=== PATIENT | male | born 1985 | race Caucasian/White ===

== ENCOUNTER 2016-09-15 15:50 | Inpatient (IN) | payer BC, OTHER ==
[~2016-09-15] VITALS: Ht 180.3 cm; Wt 70.3 kg
[2016-09-15] MEDS ORDERED: ONDANSETRON ODT 4 MG TAB.RAPDIS SL PRN (19:15)
[2016-09-15] MEDS ORDERED: HYDROXYZINE PAMOATE 25 MG CAPSULE PO PRN (19:15)
[2016-09-15] MEDS ORDERED: diphenhydrAMINE 50 MG CAPSULE PO PRN (19:15)
[2016-09-15] MEDS ORDERED: DICYCLOMINE HCL 20 MG TABLET PO PRN (19:15)
[2016-09-15] MEDS ORDERED: MIRALAX 17 GM POWD.PACK PO PRN (19:15)
[2016-09-15] MEDS ORDERED: METHOCARBAMOL 750 MG TABLET PO PRN (19:15)
[2016-09-15] MEDS ORDERED: MAG HYDROX/AL HYDROX/SIMETH 30 ML LIQUID UDC PO PRN (19:15)
[2016-09-15] MEDS ORDERED: ONDANSETRON 4 MG/2 ML VIAL IM PRN (19:15)
[2016-09-15] MEDS ORDERED: LORAZEPAM 1 MG TABLET PO PRN (19:15)
[2016-09-15] MEDS ORDERED: MAGNESIUM HYDROXIDE 30 ML LIQUID UDC PO PRN (19:15)
[2016-09-15] MEDS ORDERED: BUPRENORPHINE HCL 2 MG TAB.SUBL SL PRN (19:15)
[2016-09-15] MEDS ORDERED: IBUPROFEN 600 MG TABLET PO PRN (19:15)
[2016-09-15] MEDS ORDERED: LOPERAMIDE HCL 2 MG CAPSULE PO PRN ×2 (19:15)
[2016-09-15] MEDS ORDERED: CLONIDINE HCL 0.1 MG TABLET PO PRN (19:15)
[2016-09-15] MEDS ORDERED: ACETAMINOPHEN 325 MG TABLET PO PRN (19:15)
--- NOTE | 2016-09-15 19:20 | NUR ---
PRE-ADMISSION NOTE PATIENT SEEN IN INTAKE. ALERT AND ORIENTED X 4. PATIENT ABLE TO ANSWER QUESTIONS APPROPRIATELY. VS BP-144/79 P-104 T-96.9 R-18 PA-0/10. SpO2 AT 96% IN RA. PATIENT APPEARS TO BE ANXIOUS. PATIENT AMBULATORY AND HAS STEADY GAIT. DENIES ANY PAIN. PATIENT STATES HES ALLERGIC TO REMERON. NO SEIZURE HISTORY. DISCUSSED TO PATIENT UNIT POLICIES , Q4HRS VS AND SMOKING POLICIES. WILL CONTINUE ADMISSION ON 3RD FLOOR.
[2016-09-15 19:30] VITALS: BP 144/79
--- NOTE | 2016-09-15 19:30 | NUR ---
ADMISSION NOTE RECEIVED PATIENT IN THE UNIT AT THIS TIME. 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 HEIGHT IS 5'11 AND WEIGHT IS 155 LBS. LUNGS CLEAR AND ABDOMEN SOFT AND NON-DISTENDED. BOWEL SOUNDS ACTIVE ON ALL 4 QUADRANT. PER PATIENT HIS LAST BOWEL MOVEMENT WAS LAST WEDNESDAY. HE HAS REGULAR BOWEL MOVEMENT WHEN HE DOESN'T USE. NO ABDOMINAL PAIN AND DENIES CONSTIPATION. DENIES DIFFICULTY URINATING. UNABLE TO PROVIDED URINE AT THIS TIME. BODY CHECK DONE. SKIN INTACT. NO SKIN BREAKDOWN. PATIENT IS CURRENTLY UNEMPLOYED AND HAS BEEN LIVING IN [facility]. PATIENT DENIES ANY PAST MEDICAL HISTORY. PATIENT REQUESTED TO BE FULL CODE AND ON REGULAR DIET. HIS LONGEST PERIOD OF SOBRIETY WAS 6 MONTHS ON 2013. PATIENT STATES HE WAS IN ABLE TO CHANGE RECOVERY ON AUGUST 17 TO AUGUST 14. HE RELAPSED 3 DAYS AGO. SUBSTANCE HISTORY 1.HEROIN (SMOKE)- STARTED USING AT AGE 27. HE SMOKES GRAM DAILY FOR 3 DAYS. LAST USE WAS GRAM ON 09/15/16 AT 7 AM. 2.METHAMPHETAMINE (SMOKE)- STARTED USING AT AGE 29. HE SMOKES $20 WORTH FOR 3 DAYS. LAST USE WAS $5 WORTH. PATIENT APPEARS TO BE ANXIOUS, RESTLESS, FIDGETY, NOTED WITH FINE TREMORS. COWS 6. PATIENT STATES HES TIRED , HE STATES HE DID NOT SLEEP FOR 4 DAYS BUT HAD 1 HOUR SLEEP BEFORE COMING HERE. DENIES SI/HI. PATIENT STATES HIS W/D SYMPTOMS ARE BACK ACHE, ANXIETY AND LETHARGY. PATIENT STATES HE DOES NOT HAVE PCP. PATIENT SMOKES PACK DAILY. PATIENT BROUGHT HOME MEDS RECONCILED. PATIENT BROUGHT CLONIDINE AND SEROQUEL. PATIENT ORIENTED TO SURROUNDINGS AND HOW TO USE CALL LIGHT. WILL CALL MD AND WILL GIVEN DETAIL REPORT. PATIENT WAS PLACED ON FALL PRECAUTION. SAFETY MEASURES IN PLACE. CALL LIGHT IN REACH. WILL CONTINUE TO MONITOR.
[2016-09-15] MEDS ORDERED: CLON0.1T PO (20:21)
[2016-09-15] MEDS ORDERED: QUET200T PO (20:24)
[2016-09-15 20:25] LABS: BASOPHILS % (AUTO) 0.4 % (0.0-2.0); EOSINOPHILS # (AUTO) 0.2 K/uL (0.0-0.7); EOSINOPHILS % (AUTO) 2.5 % (0.0-7.0); HEMATOCRIT 38.2 % (40-50); HEMOGLOBIN 12.6 G/DL (14.0-18.0); LYMPHOCYTES # (AUTO) 1.4 K/UL (0.8-4.8); LYMPHOCYTES % (AUTO) 17.6 % (20.5-51.5); MEAN CORPUSCULAR HEMOGLOBIN 29.4 UUG (27.0-31.0); MEAN CORPUSCULAR HGB CONC 33 g/dL (32.0-37.0); MEAN CORPUSCULAR VOLUME 88.9 FL (82.0-92.0); MONOCYTES # (AUTO) 1.2 K/UL (0.1-1.30); MONOCYTES % (AUTO) 14.8 % (0.0-11.0); NEUTROPHILS # (AUTO) 5.1 K/UL (1.8-8.9); NEUTROPHILS % (AUTO) 64.7 % (38.5-71.5); PLATELET COUNT (AUTO) 219 K/UL (150-450); RED BLOOD CELL COUNT(AUTO) 4.29 MIL/UL (4.7-6.1); WHITE BLOOD COUNT (AUTO) 7.9 K/UL (4.0-11.2)
[2016-09-15 20:27] LABS: ETHANOL < 3 MG/DL (0-0)
[2016-09-15 20:33] LABS: ALANINE AMINOTRANSFERASE 42 U/L (16-63); ALKALINE PHOSPHATASE 67 U/L (50-136); ASPARTATE AMINOTRANSFERASE 42 U/L (15-37); BILIRUBIN,TOTAL 0.4 mg/dL (0.2-1.0); CARBON DIOXIDE 27 mmol/L (21-32); CHLORIDE 104 mmol/L (98-107); GLUCOSE 113 mg/dL (74-106); MAGNESIUM 2.2 mg/dL (1.8-2.4); TOTAL PROTEIN, SERUM 7.6 g/dL (6.4-8.2); UREA NITROGEN, BLOOD 18 mg/dL (7-18)
[2016-09-16] VITALS: BP 121/86
[2016-09-16 04:00] VITALS: BP 129/92
--- NOTE | 2016-09-16 07:16 | NUR ---
END OF SHIFT NOTE PATIENT IS A 31 YEAR OLD MALE NEWLY ADMITTED FOR OPIATE/METH DEPENDENCE. PATIENT RELAPSED 3 DAYS AGO UPON ADMISSION. PATIENT IS UNDER OBSERVATION. PATIENT SLEPT 9 HOURS. FLUID INTAKE 800 ML. VOIDED X 0. NO BM. LAST COWS 1. PATIENT HAD UNEVENTFUL NIGHT. PATIENT DID NOT REQUIRE ANY PRN MEDICATION. ENDORSED TO DAY SHIFT NURSE. PATIENT STILL UNABLE TO PROVIDE UA. SAFETY MEASURES IN PLACE. CALL LIGHT IN REACH. WILL CONTINUE TO MONITOR.
[2016-09-16 08:00] VITALS: BP 117/78
--- NOTE | 2016-09-16 08:00 | NUR ---
START OF SHIFT: RECEIVED PT LAYING IN BED SLEEPING. RESPIRATIONS EVEN AND UNLABORED. BED LOW AND LOCKED. CALL KENNEDY IN REACH. WILL CONTINUE TO MONITOR AND OFFER SUPPORT.
[2016-09-16] MEDS ORDERED: TUBERCULIN,PURIF.PROT.DERIV. 5 TU/0.1 ML TEST ID ONE (09:00)
[2016-09-16] MEDS: MULTIVITAMINS,THERAPEUTIC TABLET PO SCH (09:00)
--- NOTE | 2016-09-16 10:15 | NUR ---
AM COWS DEFERRED PT IS ASLEEP.
[2016-09-16 12:00] VITALS: BP 126/84
--- NOTE | 2016-09-16 12:05 | NUR ---
PT IS A/O X 4. HE DENIES S/S OF W/D AT THIS TIME. HE STATES HE STILL UNABLE TO VOID TO PROVIDE UDS. DISCHARGE PLANNING IN PROGRESS. COWS 1
--- NOTE | 2016-09-16 15:30 | NUR ---
Pt seen and examined by Dr. Hopson
[2016-09-16] MEDS ORDERED: QUETIAPINE FUMARATE 200 MG TABLET PO PRN (15:45)
[2016-09-16 16:00] VITALS: BP 119/67
[2016-09-16 17:41] LABS: *AMPHETAMINE, URINE POSITIVE (NEGATIVE); *BARBITURATE, URINE NEGATIVE (NEGATIVE); *CANNABINOID, URINE NEGATIVE (NEGATIVE); *COCCAINE, URINE NEGATIVE (NEGATIVE); *OPIATE, URINE POSITIVE (NEGATIVE); *PHENCYCLIDINE SCREEN,URINE NEGATIVE (NEGATIVE)
--- NOTE | 2016-09-16 18:43 | NUR ---
END OF SHIFT: PT SLEPT MOST OF SHIFT AND DENIES S/S OF W/D. COWS LAST COWS 1. HE HAS PRNS AVAILABLE. UDS COLLECTED. HE EXPRESSED ENTHUSIASM TOWARD RECOVERY AND STATES HE REALLY WANTS TO STAY CLEAN. WILL PASS SHIFT REPORT TO ONCOMING NIGHT NURSE.
[2016-09-16 20:00] VITALS: BP 142/97
--- NOTE | 2016-09-16 20:00 | NUR ---
START OF SHIFT RECEIVED REPORT FROM DAY SHIFT NURSE. PATIENT STABLE. PATIENT IS MEDICALLY CLEARED TO BE DISCHARGED TOMORROW. PATIENT RELAPSED 3 DAYS AGO UPON ADMISSION, HE WAS PLACED UNDER OBSERVATION. PATIENT REPORTED USING HEROIN (SMOKE ) 1/2 GRAM AND METH (SMOKE) "$20 WORTH IN 3 DAYS". PATIENT DID NOT REQUIRE ANY PRN MEDICATION. LAST COWS 1. ON FALL PRECAUTION. SAFETY MEASURES IN PLACE. CALL LIGHT IN REACH. WILL CONTINUE TO MONITOR.
--- NOTE | 2016-09-16 22:40 | NUR ---
PRN SEROQUEL ADMINISTRATION PATIENT REQUESTS FOR SLEEP AID. PRN SEROQUEL GIVEN. WILL MONITOR FOR EFFECTIVENESS
--- NOTE | 2016-09-16 23:40 | NUR ---
PRN SEROQUEL RE-ASSESSMENT PATIENT IN BED WITH HIS EYES CLOSED. NO S/S OF DISTRESS. SAFETY MEASURES IN PLACE. CALL LIGHT IN REACH. WILL CONTINUE TO MONITOR
[2016-09-17] VITALS: BP 98/61
--- NOTE | 2016-09-17 04:00 | NUR ---
COWS/VS PATIENT ASLEEP. COWS UNABLE TO ASSESS. RESPIRATION EVEN AND UNLABORED. RR 14. SAFETY MEASURES IN PLACE. CALL LIGHT IN REACH. WILL CONTINUE TO MONITOR.
--- NOTE | 2016-09-17 07:10 | NUR ---
END OF SHIFT NOTE PATIENT REMAIN STABLE. PATIENT IS MEDICALLY CLEARED TO BE DISCHARGED TODAY. PATIENT RELAPSED 3 DAYS AGO UPON ADMISSION, HE WAS PLACED UNDER OBSERVATION. PATIENT REPORTED USING HEROIN (SMOKE ) 1/2 GRAM AND METH (SMOKE) "$20 WORTH IN 3 DAYS". PATIENT WAS GIVEN PRN SEROQUEL FOR SLEEP. PATIENT COMPLIANT WITH TREATMENT PLAN. ON FALL PRECAUTION. SAFETY MEASURES IN PLACE. CALL LIGHT IN REACH. WILL CONTINUE TO MONITOR. SLEPT 6 HOURS . FLUID INTAKE 796 ML. VOIDED X 2. NO BM. LAST COWS 1.
--- NOTE | 2016-09-17 07:37 | NUR ---
START OF SHIFT Received report from night nurse. 31 year old male patient admitted for heroin and methamphetamine dependence. Pt has only relapsed for 3 days, he was not placed on a taper. Pt s/s of withdrawals were being controlled with ordered PRN medications. Pt is medically cleared for discharge. Pt does not present with acute s/s of withdrawals at this time. No PRN medications were needed or administered at night. PRN Seroquel was administered, pt slept for 6 hours. Most recent COWS are 1. Pt V/S remain WNL. Pt remains safe. All needs met at this time. Will continue to monitor.
[2016-09-17 08:07] VITALS: BP 124/74
[2016-09-17] MEDS: MULTIVITAMINS,THERAPEUTIC TABLET PO SCH (08:13)
[2016-09-17] MEDS ORDERED: DICY20TA28 PO (08:48)
[2016-09-17] MEDS ORDERED: HYDR-3895 PO (08:48)
[2016-09-17] MEDS ORDERED: METH-406 PO (08:48)
[2016-09-17] MEDS ORDERED: IBUP-1955 PO (08:48)
--- NOTE | 2016-09-17 09:53 | NUR ---
D/C NOTE Pt is A/O x4. Denies SI/HI or hallucinations. Pt does not present with acute s/s of withdrawal at this time. COWS are 1. All pt belongings including prescriptions and medications are in belonging bag. Pt education provided on smoking cessation, hepatitis c and importance of medication compliance. Pt verbalizes understanding. Pt is being accompanied by [facility] to be transported to rehab. All needs met.
[2016-09-17 10:12] LABS: HEPATITIS B SURFACE AG Negative (Negative)
== END 2016-09-17 09:53 | disposition other institution (70) | DRG 895 ==
LOC: SRC 18:31
PROVIDERS: ADMIT Internal Medicine; ATTEND Internal Medicine
PROC: HZ2ZZZZ Detoxification Services for Substance Abuse Treatment (ICD-10-PCS; principal; 2016-09-15)
PROC: HZ51ZZZ Individual Psychotherapy for Substance Abuse Treatment, Behavioral (ICD-10-PCS; 2016-09-17)
DX: F11.23 Opioid dependence with withdrawal (principal); Z83.3 Family history of diabetes mellitus; Z82.0 Family history of epilepsy and other diseases of the nervous system; Z59.1 Inadequate housing; F15.220 Other stimulant dependence with intoxication, uncomplicated; F41.9 Anxiety disorder, unspecified; F17.210 Nicotine dependence, cigarettes, uncomplicated; D64.9 Anemia, unspecified; G47.00 Insomnia, unspecified; I10 Essential (primary) hypertension; R74.8 Abnormal levels of other serum enzymes
CPT/HCPCS: 36415; 71010; 80307; 80324; 80361; 83735; 85025; 86592; 86705; 86803; 87340; 87806; A4663; G0480